=== PATIENT | female | born 1990 | race Two or more races ===

== ENCOUNTER 2020-01-12 23:33 | Inpatient (IN) | payer OTHER ==
[~2020-01-12] VITALS: Ht 149.9 cm; Wt 50.8 kg
[2020-01-12] MEDS ORDERED: PRENATABS RX T1 EACH PO (23:51)
[2020-01-12] MEDS ORDERED: SYNTHROID75 MCG PO (23:51)
[2020-01-16] MEDS ORDERED: PRENATABS RX T1 EACH PO (10:56)
[2020-01-16] MEDS ORDERED: CEFADROXIL500 MG PO (10:56)
[2020-01-16] MEDS ORDERED: SYNTHROID75 MCG PO (10:56)
== END 2020-01-16 10:20 | disposition home or self-care (01) | DRG 832 ==
LOC: ER 23:33 → OB/GYN 01-13 08:58
PROVIDERS: ADMIT Obstetrics & Gynecology; ATTEND Obstetrics & Gynecology
PROC: BW40ZZZ Ultrasonography of Abdomen (ICD-10-PCS; principal; 2020-01-13)
PROC: 4A1HXCZ Monitoring of Products of Conception, Cardiac Rate, External Approach (ICD-10-PCS; 2020-01-13)
DX: O26.612 Liver and biliary tract disorders in pregnancy, second trimester (principal); K83.09 Other cholangitis; Z3A.24 24 weeks gestation of pregnancy

== ENCOUNTER 2020-02-04 17:06 | Inpatient (IN) | payer OTHER ==
[~2020-02-04] VITALS: Ht 149.9 cm; Wt 50.3 kg
[~2020-02-04 17:06] MED LIST: CEFADROXIL500 MG PO; PRENATABS RX T1 EACH PO; SYNTHROID75 MCG PO
[2020-02-04] MEDS ORDERED: FOLIC ACID0.8 M1 PO (18:33)
== END 2020-02-09 13:21 | disposition home or self-care (01) | DRG 807 ==
LOC: LDR 17:06 → OB/GYN 02-06 08:03
PROVIDERS: ADMIT Obstetrics & Gynecology; ATTEND Obstetrics & Gynecology
PROC: BY4CZZZ Ultrasonography of Second Trimester, Single Fetus (ICD-10-PCS; 2020-02-04)
PROC: 4A1HXCZ Monitoring of Products of Conception, Cardiac Rate, External Approach (ICD-10-PCS; 2020-02-04)
PROC: 10E0XZZ Delivery of Products of Conception, External Approach (ICD-10-PCS; principal; 2020-02-07)
DX: O42.913 Preterm premature rupture of membranes, unspecified as to length of time between rupture and onset of labor, third trimester (principal); Z37.0 Single live birth; Z20.828 Contact with and (suspected) exposure to other viral communicable diseases; Z3A.28 28 weeks gestation of pregnancy